=== PATIENT | male | born 1960 | race African-American/Black ===

== ENCOUNTER 2017-08-07 20:41 | Emergency (ER) | payer OTHER ==
[~2017-08-07] VITALS: Ht 188 cm; Wt 92.3 kg
[2017-08-07 20:46] VITALS: BP 148/93
[2017-08-07] MEDS ORDERED: MORPHINE SULFATE 4 MG/ML SYRINGE IM ONE (23:15)
== END 2017-08-08 00:20 | disposition home or self-care (01) ==
LOC: EMS 20:42
DX: M16.12 Unilateral primary osteoarthritis, left hip (principal); Z72.89 Other problems related to lifestyle
CPT/HCPCS: 73503; 96372; 99284; J2270

== ENCOUNTER 2018-04-15 10:27 | Emergency (ER) | payer OTHER ==
[~2018-04-15] VITALS: Ht 188 cm; Wt 88.6 kg
[2018-04-15] MEDS ORDERED: KETOROLAC TROMETHAMINE 60 MG/2 ML VIAL IM ONE (13:45)
[2018-04-15] MEDS ORDERED: METHOCARBAMOL 500 MG TABLET PO ONE (13:45)
[2018-04-15 14:06] VITALS: BP 132/76
== END 2018-04-15 14:13 | disposition home or self-care (01) ==
LOC: EMS 10:29
DX: M54.5 Low back pain (principal)
CPT/HCPCS: 96372; 99283; J1885